=== PATIENT | female | born 1970 | race Caucasian/White ===

== ENCOUNTER 2018-12-01 12:10 | Emergency (ER) | payer OTHER ==
[~2018-12-01] VITALS: Ht 167.6 cm; Wt 81.6 kg
[2018-12-01] MEDS ORDERED: JANUVIA100 MG (12:37)
[2018-12-01] MEDS ORDERED: PROVENTIL HFA6.7 GM (12:38)
== END 2018-12-01 16:31 | disposition home or self-care (01) ==
LOC: ER 12:10
DX: J06.9 Acute upper respiratory infection, unspecified (principal); J32.8 Other chronic sinusitis